=== PATIENT | female | born 2000 | race Two or more races ===

== ENCOUNTER 2020-02-03 09:16 | Observation (INO) | payer OTHER, SELFPAY ==
--- NOTE | 2020-02-03 09:40 | OBADM ---
This patient, Giovanna Donald, admitted to the OB room Labor/Delivery/Recovery 106 at 0912 for observation for contractions. Patient/family oriented to hospital policies and general routines including ID bracelet, bed and alarms, visiting hours, pain management, procedures, bathroom and other care routines, personal items, smoking policy, room service/diet, and visiting hours. Patient/Family are encouraged to report perceived risks to care and to ask questions if they do not understand what they are told or what they should do.
[2020-02-03 09:45] VITALS: BMI 23.5
--- NOTE | 2020-02-08 07:05 | PM.OBTRLD ---
OB - Triage/Final Diagnosis Visit Information Date of evaluation: 02/03/20 Reason for evaluation: threatened labor
== END 2020-02-03 13:30 | disposition home or self-care (01) ==
PROVIDERS: Admitting Provider Student in an Organized Health Care Education/Training Program; PCP Family Medicine; Visit Provider Student in an Organized Health Care Education/Training Program
DX: O47.1 False labor at or after 37 completed weeks of gestation (principal); Z3A.38 38 weeks gestation of pregnancy
CPT/HCPCS: G0378; G0379

== ENCOUNTER 2020-02-04 22:33 | Observation (INO) | payer OTHER, SELFPAY ==
--- NOTE | 2020-02-04 22:33 | OBADM ---
This patient, Giovanna Donald, admitted to the OB room Labor/Delivery/Recovery 103 for observation of ctx's. Patient/family oriented to hospital policies and general routines including ID bracelet, bed and alarms, visiting hours, pain management, procedures, bathroom and other care routines, personal items, smoking policy, room service/diet, and visiting hours. Patient/Family are encouraged to report perceived risks to care and to ask questions if they do not understand what they are told or what they should do.
[2020-02-04 22:50] VITALS: BMI 23.5
--- NOTE | 2020-02-06 07:41 | PM.OBTRLD ---
OB - Triage/Final Diagnosis Visit Information Date of evaluation: 02/05/20 Reason for evaluation: threatened labor
== END 2020-02-05 01:26 | disposition home or self-care (01) ==
PROVIDERS: Admitting Provider Obstetrics & Gynecology; PCP Family Medicine; Visit Provider Obstetrics & Gynecology
DX: O47.1 False labor at or after 37 completed weeks of gestation (principal); Z3A.38 38 weeks gestation of pregnancy
CPT/HCPCS: G0378; G0379

== ENCOUNTER 2020-02-09 04:53 | Inpatient (IN) | payer OTHER, SELFPAY ==
[2020-02-09] VITALS (137 sets, daily range): BP systolic 53–232; BP diastolic 15–203; PULSE 50–190; TEMP 36.2–38.2; O2SAT 90–100; BMI 24.1
--- NOTE | 2020-02-09 04:53 | LDADM ---
This patient, Giovanna Donald, was admitted to Labor/Delivery/Recovery 103 on 02/09/20 at 04:53. Plans for labor, pain management and were discussed with patient. Patient/family oriented to hospital policies and general routines including ID bracelet, bed and alarms, visiting hours, pain management, procedures, bathroom and other care routines, personal items, smoking policy, room service/diet and guest tray routines, infant security routines, and visiting hours. Patient/Family are encouraged to report perceived risks to care and to ask questions if they do not understand what they are told or what they should do. See OBIX for further documentation.
[2020-02-09 05:37] LABS: Basophils Percent Auto 0.2 % (0.2-1.2); Eosinophils Absolute Auto 0.1 K/mm3 (0-0.3); Eosinophils Percent Auto 0.8 % (0-4.4); Hematocrit 33.5 % (37.0-47.0); Immature Granulocyte Absolute 0.13 K/mm3 (0.00-0.031); Immature Granulocyte Percent A 1.1 % (0-0.5); Lymphocytes Absolute Auto 2.83 K/mm3 (0.9-3.2); Lymphocytes Percent Auto 23.9 % (18.3-44.2); Mean Corpuscular HGB Conc 29.9 g/dl (32-36); Mean Corpuscular Hemoglobin 20.8 pg (26-34); Mean Corpuscular Volume 69.8 fl (80-100); Mean Platelet Volume 10.2 fl (7.4-10.4); Monocytes Absolute Auto 0.9 K/mm3 (0.1-0.6); Monocytes Percent Auto 7.2 % (2.6-8.5); Neutrophils Absolute Auto 7.9 K/mm3 (1.3-6.7); Neutrophils Percent Auto 66.8 % (45.5-73.1); Platelet Count Result 224 k/mm3 (150-375); Red Cell Distribution Width 17.4 % (11.5-14.5); White Blood Count 11.8 K/mm3 (4.5-10.0)
[2020-02-09] MEDS: LACTATED RINGERS 1,000 ML 125 ML IV CONT ×4 (05:43→16:27)
[2020-02-09 05:51] LABS: Hypochromasia 1+ (NORMAL); Microcytosis 1+ (NORMAL); Platelet Estimate Adequate (Adequate)
--- NOTE | 2020-02-09 07:23 | P.HPUP_ITS ---
History and Physical Update Update Date/Time: 02/09/20 07:23 19 yo at 39w3d who presents for elective IOL. Her has been uncomplicated thus far. She denies any vaginal bleeding or LOF. she reports occasional contractions. She endorses good FM. anatomy survey showed poss ible dilated atrium. The patient received an M consults which recommended echo after . History and Physical has been reviewed, including an updated exam of the patient. There are NO changes in the patient's condition. Risks, benefits, and alternatives have been discussed and questions answered. Patient agrees to proceed with procedure. A/P: 19 yo at 39w3d who presents for IOL admit to L&D routine admission orders cvx 3/75/-3 in office FHT category 1 Rh+ GBS neg plan for pitocin induction
[2020-02-09] MEDS: OXYTOCIN 30 UNITS/NS 500 ML 30 UNITS/500 ML BAG IV CONT (07:38)
[2020-02-09 09:41] LABS: Rapid Plasma Reagin Non-Reactive (NonReactive)
[2020-02-09] MEDS: ONDANSETRON INJ 4 MG/2 ML VIAL IV PUSH (12:00)
--- NOTE | 2020-02-09 12:16 | P.PNAN_ITS ---
Anes - Eval Pre Procedure Procedure: labor epidural Date/Time: 02/09/20 12:16 Surgeon: anabell Pre Op Diagnosis: Induction Patient Data Age: 19 Gender: F Height: 1.7 m Weight: 70 kg Last Vital Signs Temp 36.8 C 02/09/20 09:00 Pulse 64 02/09/20 12:00 BP 104/55 L 02/09/20 12:00 Allergies Allergy/AdvReac Type Severity Reaction Status Date / Time bee venom protein (honey bee) Allergy Anaphylactic Verified 01/16/20 12:32 [bees] Shock Home Medications Medication Instructions Recorded Confirmed Type PNV cmb#95-ferrous fumarate-FA 1 tablet PO DAILY 01/16/20 02/09/20 History [] ergocalciferol (vitamin D2) 1,250 mcg PO WEEKLY 01/16/20 02/09/20 History [Vitamin D2] ferrous sulfate 250 mg PO DAILY 01/16/20 02/09/20 History Laboratory Tests 02/09/20 02/09/20 02/09/20 05:23 05:23 05:23 WBC 11.8 K/mm3 H K/mm3 (4.5-10.0) RBC 4.80 M/mm3 M/mm3 (4.2-5.4) Hgb 10.0 g/dL L g/dL (12.0-15.0) Hct 33.5 % L % (37.0-47.0) MCV 69.8 fl L fl (80-100) MCH 20.8 pg L pg (26-34) MCHC 29.9 g/dl L g/dl (32-36) RDW 17.4 % H % (11.5-14.5) Plt Count 224 k/mm3 k/mm3 (150-375) MPV 10.2 fl fl (7.4-10.4) Immature Gran % (Auto) 1.1 % H % (0-0.5) Neut % (Auto) 66.8 % % (45.5-73.1) Lymph % (Auto) 23.9 % % (18.3-44.2) [place] % (Auto) 7.2 % % (2.6-8.5) Eos % (Auto) 0.8 % % (0-4.4) Baso % (Auto) 0.2 % % (0.2-1.2) Lymph # (Auto) 2.83 K/mm3 K/mm3 (0.9-3.2) [place] # (Auto) 0.9 K/mm3 H K/mm3 (0.1-0.6) Eos # (Auto) 0.1 K/mm3 K/mm3 (0-0.3) Baso # (Auto) 0.0 K/mm3 K/mm3 (0.0-0.1) Abs Immat Gran (auto) 0.13 K/mm3 H K/mm3 (0.00-0.031) Absolute Neuts (auto) 7.9 K/mm3 H K/mm3 (1.3-6.7) Absolute Nucleated RBC 0.0 K/mm3 K/mm3 (0.0-0.012) Nucleated RBC % 0.0 % % (0.0-0.2) Platelet Estimate Adequate (Adequate) Hypochromasia 1+ (NORMAL) Microcytosis 1+ (NORMAL) RPR Non-reactive (NonReactive) Blood Type A Positive Antibody Screen Negative Patient hx anesthesia problems: none Family hx anesthesia problems: none [facility] Family History Family History (Updated 01/16/20 @ 12:36 by Armani Espinoza RN) Sibling Heart abnormality Mother Multiple sclerosis Social History Social History Smoking status: Never smoker Substance use: never Spiritual care concerns: No Exam Day of Procedure 02/09/20 12:16
--- NOTE | 2020-02-09 13:02 | PM.OBPNLAB ---
Pain Control Date/time seen: 02/09/20 13:02 Pain control: epidural Pelvic Exam Dilation (cm): 4 Effacement (%): 90 station: 0 Amniotic membrane status: Ruptured Contractions Monitor mode: Internal Contraction frequency: 3 Contraction pattern: Regular Status status: Category l Assessment and Plan Assessment: induction ongoing Plan: continuous present management
[2020-02-09] MEDS: PHENYLEPHRINE 1,000 MCG/10 ML SYRINGE 100 MCG IV PUSH ×2 (13:14→13:24)
[2020-02-09] MEDS: SODIUM CHLORIDE 0.9% IV 300 ML 600 ML I-UTERINE (20:30)
[2020-02-09] MEDS: AMPICILLIN 2 GM/NS 100 ML 2 GM/100 ML BAG IVPB (20:51)
[2020-02-09] MEDS: OXYTOCIN 30 UNITS/NS 500 ML 30 UNITS/500 ML BAG 125 UNITS IV CONT (21:49)
--- NOTE | 2020-02-09 21:51 | PM.OBPRVD ---
OB - Delivery Note Procedure Procedure: Patient pushed for a spontaneous vaginal delivery. The fetus was delivered atraumatically and placed on the maternal abdomen. The cord was clamped and cut after 1 minute of life. The cord was double clamped and cut and a segment of cord was collected for cord gases. Cord blood was collected for blood type and Coomb's testing. The placenta delivered spontaneously and was noted to be intact. The perineum was inspected and there was a 2nd degree perineal laceration. The laceration was repaired with 3-0 vicryl in the usual fashion. The uterus was firm and good hemostasis was noted. The patient and fetus were stable in the delivery room. Intrapartal events: Chorioamnionitis Induction method: per pitocin protocol Delivery augmentation: rupture of membranes Delivery monitor: external FHT Route of delivery: Episiotomy description: None Laceration description: Perineal - 2nd Degree Delivery repair: vicryl Specimen: No Estimated blood loss (mL): 250 Anesthesia type: Epidural Disposition: floor () Complications: No immediate complications [place] Baby Date of : 02/09/20 Time of : 21:26 Weeks of gestation at delivery: 39 Infant gender: Female Weight (pounds): 6 Weight (ounces): 12 presentation: vertex position: Right Occiput Anterior Placenta delivery description: Spontaneous cord vessel description: 3 Vessels score one minute: 9 score five minutes: 9
--- NOTE | 2020-02-09 21:57 | PM.OBDSVD ---
OB - DS: Summary OB Procedures : None OB Procedures Intrapartum: Spontaneous Vag Delivery OB Procedures: : None Status at Discharge Functional status at discharge: independent ambulation Overall status at discharge: patient is back to baseline Time Spent with Patient Time attestation: Total time spent providing and/or coordinating discharge services: Time spent: Less than 30 minutes Exam Const: General: comfortable and no acute distress Resp: Effort & Inspection: normal respiratory effort Auscultation: clear to auscultation bilaterally Cardio: Rate: regular rate GI: GI Palp: Yes Soft to palpation Auscultation: normal bowel sounds Other: Fundus firm below umbilicus Psych: Appearance: grossly normal Mental Status: mental status grossly normal Affect: normal affect DS: Data Data Completed and Pending Labs on day of discharge: Labs from last 24 hours 02/09/20 02/09/20 02/09/20 05:23 05:23 05:23 WBC 11.8 H RBC 4.80 Hgb 10.0 L Hct 33.5 L MCV 69.8 L MCH 20.8 L MCHC 29.9 L RDW 17.4 H Plt Count 224 MPV 10.2 Immature Gran % (Auto) 1.1 H Neut % (Auto) 66.8 Lymph % (Auto) 23.9 [place] % (Auto) 7.2 Eos % (Auto) 0.8 Baso % (Auto) 0.2 Lymph # (Auto) 2.83 [place] # (Auto) 0.9 H Eos # (Auto) 0.1 Baso # (Auto) 0.0 Abs Immat Gran (auto) 0.13 H Absolute Neuts (auto) 7.9 H Absolute Nucleated RBC 0.0 Nucleated RBC % 0.0 Platelet Estimate Adequate Hypochromasia 1+ Microcytosis 1+ RPR Non-reactive Blood Type A Positive Antibody Screen Negative Discharge Plan Discharge Attending physician on discharge: Phil Biggs Discharging Clinician: Chris Hinds Patient Disposition: Home, Self-Care Activity: no straining and pelvic rest Diet: regular Discharge Instructions: call or return for temperature >100.4, bleeding >2 pads/hr for 2 hrs, pain not controlled with medications, signs/symptoms of mastitis Education: Mom and Baby Guide Given to: Mother Follow-Up: Call your delivering provider's office for an appointment to be seen in: 6 Weeks Mom and baby should come to the [facility] for the follow-up appointment. Appointment Date/Time: February 13, 2020 at 10:00 am What to expect at your follow-up visit: Blood Pressure Check Physical Assessment Call [phone] if you are unable to keep your appointment time. BREAST CARE: 1. Wear a snug supportive bra. 2. For engorgement discomfort: Breast Feeding: A. Apply warm moist washcloths B. Express milk as needed to relieve engorgement C. Wear loose clothing Bottle Feeding: A. May apply ice packs 3. For sore nipples: A. Identify correct latch-on B. Apply warm moist washcloths before and after nursing C. Air dry nipples after nursing D. May apply Lansinoh cream to nipples EPISIOTOMY/PERINEAL CARE: 1. Until bleeding stops, use your gene bottle after urinating 2. Change your pad frequently throughout the day 3. You may take sitz baths several times a day (fill your bathtub with warm water and soak for 20 minutes.) Do NOT bathe in the water 4. No tub baths until seen by your physician - You may shower ACTIVITY: 1. Rest as much as possible. 2. Do not exercise or lift anything heavier than your baby (such as laundry or other children.) 3. Avoid stairs or driving as much as possible. 4. Do not put anything into the vagina. No douching, tampons, or sexual activity until seen by physician. NOTIFY PHYSICIAN IF YOU HAVE ANY QUESTIONS OR IF ANY OF THE FOLLOWING SYMPTOMS OCCUR: 1. If your episiotomy or incision becomes red, swollen, or more painful than what you have experienced in the hospital. 2. If your vaginal bleeding becomes foul smelling. 3. If your vaginal bleeding becomes more heavy than a period or if your bleeding changes from
[2020-02-09] MEDS: BENZOCAINE 20% AER SPR (*SP) 56 GM CAN 1 SPRAY TOPICAL (23:44)
[2020-02-09] MEDS: WITCH HAZEL 40 PADS 1 PAD TOPICAL (23:44)
[2020-02-10 00:15] VITALS: BP 107/45; PULSE 66; RESP 18; TEMP 36.8
[2020-02-10 05:45] LABS: Hematocrit 30.6 % (37.0-47.0); Hemoglobin 8.9 g/dL (12.0-15.0)
--- NOTE | 2020-02-10 06:45 | PM.OBPNVD ---
OB - PN: Subj Subjective Date/time seen: 02/10/20 06:45 Patient comments: no complaints and pain well controlled baby status: doing well and nursing well OB - PN: Obj Data Labs CBC & Chem 7: 02/10/20 04:19 Labs: Laboratory Results - last 24 hr 02/09/20 02/10/20 05:23 04:19 Hgb 8.9 L Hct 30.6 L RPR Non-reactive OB - PN A/P Plan day: 1 Plan: routine care Time Spent With Patient Time: Total time spent is greater than 50% in coordination of care (as documented) at patient's floor/unit and/or counseling patient: Time with patient: less than 15 minutes Review of Systems Review of Systems: All systems reviewed & are unremarkable except as noted in HPI and below Exam Const: General: no acute distress Eyes: General: appearance normal, both eyes and all related structures Neck: Neck: supple and no JVD Thyroid: thyroid normal Resp: Effort & Inspection: normal respiratory effort Auscultation: clear to auscultation bilaterally Cardio: Rate: regular rate Rhythm: regular rhythm GI: Inspection: non-distended GI Palp: Yes Soft to palpation, No Tenderness to palpation present (GI) and No Guarding due to palpation present (GI) Percussion: Yes normal to percussion (fundus firm) Auscultation: normal bowel sounds : General: Yes bladder normal to palpation External Female Exam: normal external appearance Speculum Exam - Vagina: normal vaginal discharge and No vaginal bleeding Speculum Exam - Cervix: nontender Bimanual exam- vagina & uterus: bladder normal to palpation and No Cervical tenderness present OB/external & speculum: No vaginal bleeding Skin: General skin exam: no rashes or lesions noted Extrem: General: normal to inspection and no edema Psych: Mental Status: mental status grossly normal Affect: normal affect
[2020-02-10 08:25] VITALS: BP 106/43; PULSE 79; RESP 18; TEMP 37.4
[2020-02-10] MEDS: DOCUSATE SODIUM 100 MG CAPSULE PO ×2 (09:05→17:22)
[2020-02-10] MEDS: POLYSACCHARIDE IRON COMPLEX 150 MG CAPSULE PO ×2 (09:05→17:22)
--- NOTE | 2020-02-10 12:53 | WPDANLDPN2 ---
Anes-Prog Note L&D Date/Time: 02/10/20 12:53 Comfortable throughout: labor and delivery Neuraxial method: epidural Epidural/Spinal procedure site: clean & non-tender Neuro status: Neuro function grossly intact. Cardiovascular status: normal Respiratory status: normal Airway patency: baseline Mental status: baseline Post-Op hydration status: normal Vital Signs: Last Vital Signs Temp 37.4 C 02/10/20 08:25 Pulse 79 02/10/20 08:25 Resp 18 02/10/20 08:25 BP 106/43 L 02/10/20 08:25 Pulse Ox 100 02/09/20 14:24 I/O: Intake & Output 02/09/20 02/10/20 02/10/20 23:59 07:59 15:59 Intake Total 2300 Output Total 310 Balance 1989 Post-procedural complaints: none Patient feedback: Patient satisfied with anesthetic care.
[2020-02-10 19:35] VITALS: BP 103/44; PULSE 77; RESP 12; TEMP 36.6
--- NOTE | 2020-02-11 04:52 | PC.NURSE ---
0400 Pt states that she has viewed the mom baby care discharge teaching video and has no questions)
[2020-02-11] MEDS: DOCUSATE SODIUM 100 MG CAPSULE PO (09:03)
[2020-02-11] MEDS: POLYSACCHARIDE IRON COMPLEX 150 MG CAPSULE PO (09:03)
[2020-02-11] MEDS: TETANUS,DIPHTHERIA,AC PERTUSSIS ADULT (0.5 ML) BOOSTRIX IM (09:03)
[2020-02-11 09:21] VITALS: BP 102/40; PULSE 69; RESP 18; TEMP 36.8; O2SAT 100
--- NOTE | 2020-02-11 11:30 | PM.OBPNVD ---
OB - PN: Subj Subjective Date/time seen: 02/11/20 11:30 Narrative: Pain OK. Would like to go home. OB - PN: Obj Data Labs CBC & Chem 7: 02/10/20 04:19 OB - PN A/P Plan Comments: A: PPD#2, doing well. P: Home to f/u 6 weeks. Exam Psych: Other: AVSS ABD soft, nontender, fundus firm EXT nontender
[2020-02-13 10:20] VITALS: BP 99/45; PULSE 73; RESP 20; TEMP 36.8; O2SAT 100
== END 2020-02-11 13:19 | disposition home or self-care (01) | DRG 560 ==
LOC: ANHLDR 21:59 → ANHOB2 02-11 11:35 → ANHLDR 02-13 17:40 → ANHOB2 02-13 17:40
PROVIDERS: Admitting Provider Student in an Organized Health Care Education/Training Program; PCP Family Medicine; Visit Provider Obstetrics & Gynecology
DX: O75.2 Pyrexia during labor, not elsewhere classified (principal); O76 Abnormality in fetal heart rate and rhythm complicating labor and delivery; O70.1 Second degree perineal laceration during delivery; Z3A.39 39 weeks gestation of pregnancy; Z37.0 Single live birth
CPT/HCPCS: 36415; 85014; 85018; 85025; 86592; 86850; 86900; 86901; 88307; 90715; A9270; J0131; J0290; J2370; J2405; J2590; J2795; J3010; J7030; J7120